=== PATIENT | male | born 1955 | race African-American/Black ===

== ENCOUNTER 2017-06-01 13:42 | Emergency (ER) | payer SELFPAY ==
[~2017-06-01] VITALS: Ht 180.3 cm; Wt 91.0 kg
[2017-06-01 14:02] VITALS: BP 116/76
== END 2017-06-01 19:30 | disposition left against medical advice (07) ==
LOC: ER 19:27
DX: Z04.3 Encounter for examination and observation following other accident (principal); Z53.21 Procedure and treatment not carried out due to patient leaving prior to being seen by health care provider